=== PATIENT | female | born 1975 | race Two or more races ===

== ENCOUNTER → 2025-02-10 | Emergency (ER) | payer OTHER ==
[~2025-02-10] VITALS: Ht 154.9 cm; Wt 71.2 kg
[~2025-02-10] MED LIST: 0.9 % SODIUM CHLORIDE 1,000 ML IV SCH; FAMOTIDINE/PF 20 MG/2 ML VIAL IV ONE; FAMOTIDINE/PF 20 MG/2 ML VIAL ONE; GEMFIBROZIL600 MG PO; IPRAT-ALBUT 0.5-3 ML IH; IPRATROPIUM BROMIDE 0.5 MG/2.5 ML AMPUL.NEB IH ONE; LEVALBUTEROL HCL 1.25 MG/3 ML SOLUTION IH ONE; METHYLPREDNISOLONE SOD SUCC 125 MG VIAL IV ONE; METHYLPREDNISOLONE SOD SUCC 125 MG VIAL ONE; NASAL MIST126 ML; ONDANSETRON HCL 2 MG/ML VIAL IV ONE; ONDANSETRON HCL 2 MG/ML VIAL ONE; OSEL75CA PO; OSELTAMIVIR PHOSPHATE 75 MG CAPSULE PO ONE; PEPCID AC20 MG PO
[2025-02-10 09:04] LABS: BASO % 0.3 % (0.1-1.2); EOS # 0.10 (0.04-0.54); EOS % 0.9 % (0.7-7.0); LYMPH # 1.49 (1.18-3.74); LYMPH % 13.5 % (19.3-53.1); MEAN PLATELET VOLUME 9.20 fl (9.4-12.4); MONO # 1.18 (0.24-0.82); MONO % 10.7 % (4.7-12.5); NEUT # 8.24 (1.56-6.13); NEUT % 74.3 % (34.0-71.1); RED CELL DISTRIBUTION WIDTH 15.4 % (11.6-14.4)
[2025-02-10 09:17] LABS: ALT/SGPT 17.0 U/L (12-78); AST/SGOT 14.0 U/L (15-37); BILIRUBIN TOTAL 0.49 mg/dL (0.3-1.2); BUN CREA RATIO 17.0 (7.0-25.0); CREATININE SERUM 0.59 mg/dL (0.55-1.02); GFR 108.79; GLOBULINA 4.0 G/DL (2.4-3.5); GLUCOSE FASTING 112.0 mg/dL (65-100); OSMOLALITY SERUM 275.0 MOSM/KG (275-295)
[2025-02-10 09:47] LABS: COVID-19 AG NEGATIVE (NEGATIVE)
== END | disposition home or self-care (01) ==
LOC: ER 06:42
PROVIDERS: Student in an Organized Health Care Education/Training Program
DX: J10.1 Influenza due to other identified influenza virus with other respiratory manifestations (principal); Z20.822 Contact with and (suspected) exposure to COVID-19; E11.9 Type 2 diabetes mellitus without complications; Z79.84 Long term (current) use of oral hypoglycemic drugs; Z88.8 Allergy status to other drugs, medicaments and biological substances